=== PATIENT | female | born 1980 | race African-American/Black ===

== ENCOUNTER 2018-03-25 19:55 | Emergency (ER) | payer MEDICAID ==
[~2018-03-25] VITALS: Ht 160 cm; Wt 91.0 kg
[2018-03-26] MEDS ORDERED: ACETAMINOPHEN 500MG TABLET PO ONE (03:30)
[2018-03-26 06:15] VITALS: BP 130/84
== END 2018-03-26 06:20 | disposition home or self-care (01) ==
LOC: ER 19:55
DX: R07.9 Chest pain, unspecified (principal)
CPT/HCPCS: 71045; 81025; 93005; 99283

== ENCOUNTER 2021-11-15 08:53 | Emergency (ER) | payer MEDICAID, OTHER ==
[~2021-11-15] VITALS: Ht 162.6 cm; Wt 80.0 kg
[2021-11-15 09:22] VITALS: BP 154/64
[2021-11-15] MEDS ORDERED: FAMOTIDINE 20MG TABLET PO ONE (10:45)
[2021-11-15] MEDS ORDERED: ACETAMINOPHEN 325MG TABLET PO ONE (10:45)
[2021-11-15 11:13] LABS: BASOPHILS % 0.7 % (0.0-2.0); EOSINOPHILS % 1.2 % (0.0-5.0); HEMATOCRIT. 35.3 % (36.0-48.0); HEMOGLOBIN. 11.2 g/dL (12.0-16.0); MEAN PLATELET VOLUME 8.3 fl (7.4-10.4); MONOCYTES % 7.4 % (2.0-8.0); NEUTROPHILS % 57.7 % (40.0-76.0); PLATELET 282 x1000/uL (130-400); RED BLOOD CELL COUNT 4.47 mill/uL (4.2-5.4); RED CELL DISTRIBUTION WIDTH 14.6 % (11.6-14.6)
[2021-11-15 11:29] LABS: CHLORIDE 108 mEq/L (98-107)
[2021-11-15 13:00] LABS: CLARITY URINE CLEAR (CLEAR); COLOR URINE YELLOW (YELLOW); KETONES URINE TRACE (NEGATIVE); LEUKOCYTE ESTERASE URINE TRACE (NEGATIVE); NITRITE URINE NEGATIVE (NEGATIVE); OCCULT BLOOD URINE 3+ (NEGATIVE); PROTEIN URINE NEGATIVE (NEGATIVE); SPECIFIC GRAVITY URINE 1.017 (1.005-1.030)
[2021-11-15] MEDS ORDERED: OMEP20CA14 MT (13:42)
[2021-11-15] MEDS ORDERED: METR-167 MT (13:42)
== END 2021-11-15 13:53 | disposition home or self-care (01) ==
LOC: ER 08:53
DX: K27.9 Peptic ulcer, site unspecified, unspecified as acute or chronic, without hemorrhage or perforation (principal); A59.9 Trichomoniasis, unspecified; N76.0 Acute vaginitis
CPT/HCPCS: 36415; 80053; 81003; 81025; 85025; 99283